=== PATIENT | male | born 1970 | race Hispanic/Latino ===

== ENCOUNTER 2017-12-09 22:10 | Inpatient (IN) | payer OTHER, BC ==
[2017-12-09] MEDS ORDERED: Nitroglycerin 2% Ointment Foilpak UD TOP STA (23:03)
[2017-12-09 23:07] LABS: BASO # 0.1 K/uL (0.0-0.2); BASO % 0.8 % (0.0-2.0); EOS # 0.3 K/uL (0.0-0.7); EOS % 3.9 % (0.0-4.0); HEMOGLOBIN 13.8 g/dL (12.0-18.0); LYMPH # 3.1 K/uL (1.0-4.3); LYMPH % 48.1 % (20.0-40.0); MEAN CELL VOLUME 84.1 fl (80.0-94.0); MEAN CORPUSCULAR HEMOGLOBIN 29.1 pg (27.0-31.0); MEAN CORPUSCULAR HGB CONC 34.6 g/dL (33.0-37.0); MEAN PLATELET VOLUME 7.6 fl (7.2-11.7); MONO # 0.6 K/uL (0.0-0.8); NEUT # 2.5 K/uL (1.8-7.0); NEUT % 38.2 % (50.0-75.0); NRBC % 0.2 % (0.0-0.0); RBC 4.75 Mil/uL (4.40-5.90); RED CELL DISTRIBUTION WIDTH 14.2 % (11.5-14.5); WHITE BLOOD COUNT 6.5 K/uL (4.8-10.8)
[2017-12-09] MEDS ORDERED: Nitroglycerin 2% Ointment Foilpak UD TOP ONE (23:24)
[2017-12-09 23:25] LABS: PROTHROMBIN TIME 10.7 Seconds (9.8-13.1)
[2017-12-09 23:26] LABS: PARTIAL THROMBOPLASTIN TIME 28.6 Seconds (25.6-37.1)
[2017-12-09 23:30] LABS: ALB/GLOB RATIO 1.1 (1.0-2.1); ALBUMIN 4.1 g/dL (3.5-5.0); ALT/SGPT 51 U/L (21-72); AST/SGOT 46 U/L (17-59); BLOOD UREA NITROGEN 17 mg/dl (9-20); CALCIUM 9.1 mg/dL (8.4-10.2); GFR AFRICAN-AMERICAN > 60; GFR NON-AFRICAN AMERICAN > 60
--- NOTE | 2017-12-09 23:42 | ED PDOC ---
HPI: Chest Pain Time Seen by Provider: 12/09/17 22:25 Chief Complaint (Nursing): Chest Pain Chief Complaint (Provider): Chest Pain History Per: Patient History/Exam Limitations: no limitations Onset/Duration Of Symptoms: Hrs (x5) Current Symptoms Are (Timing): Still Present Quality: Dull, Pressure Associated Symptoms: denies: Nausea, Dyspnea Additional Complaint(s): Chaz Oconnell is a 47 year old male with a past medical history of hypertension and hyperlipidemia, who is presenting to the ER with complaints of left sided chest pain associated with paresthesia to the left side of the face, onset around 5 pm today. Patient describes the pain as a constant dull pressure and notes paresthesia down the left arm within the last hour. He states that the location of the pain was similar to an episode last year when he was admitted to the hospital for a cardiac workup, which was negative. Patient states he was discharged and had a stress test done with cardiac cath technologist, Dr. Smith , which also had negative results. He reports that he has not had any follow- ups s/p receiving the results of the stress test. Today, he denies any nausea, shortness of breath, or vomiting. Patient offers no other medical complaints at this time. PMD: Pito Morris - Risk Factors TAD Risk Factors: Pos: Hypertension Past Medical History Reviewed: Historical Data, Nursing Documentation, Vital Signs Vital Signs: Last Vital Signs Temp 97.7 F 12/10/17 12:34 Pulse 71 12/10/17 12:34 Resp 16 12/10/17 12:34 BP 133/83 12/10/17 12:34 Pulse Ox 97 12/10/17 12:34 - Medical History PMH: Hiatal Hernia, HTN, Hypercholesterolemia Denies: Chronic Kidney Disease - Surgical History Surgical History: No Surg Hx - Family History Family History: States: Unknown Family Hx, Hypertension (Mother) Denies: Stroke, [place], CAD - Social History Current smoker - smoking cessation education provided: Yes (occasional) Alcohol: Occasional Drugs: Denies - Home Medications Home Medications: Ambulatory Orders Medication Instructions Recorded No Known Home Med 11/10/16 - Allergies Allergies/Adverse Reactions: Allergies Allergy/AdvReac Type Severity Reaction Status Date / Time No Known Allergies Allergy Verified 11/10/16 13:30 Review of Systems ROS Statement: Except As Marked, All Systems Reviewed And Found Negative Cardiovascular: Positive for: Chest Pain Respiratory: Negative for: Shortness of Breath Gastrointestinal: Negative for: Nausea, Vomiting Physical Exam - Reviewed Nursing Documentation Reviewed: Yes Vital Signs Reviewed: Yes - Physical Exam Appears: Positive for: Non-toxic, No Acute Distress Head Exam: Positive for: ATRAUMATIC, NORMOCEPHALIC Skin: Positive for: Warm, Dry Eye Exam: Positive for: EOMI, PERRL ENT: Negative for: Pharyngeal Erythema, Tonsillar Exudate Neck: Positive for: Painless ROM, Supple Cardiovascular/Chest: Positive for: Regular Rate, Rhythm. Negative for: Murmur Respiratory: Positive for: Normal Breath Sounds. Negative for: Wheezing Gastrointestinal/Abdominal: Positive for: Soft. Negative for: Tenderness Back: Positive for: Normal Inspection. Negative for: Decreased ROM Extremity: Positive for: Normal ROM. Negative for: Pedal Edema, Calf Tenderness , Deformity Lymphatic: Negative for: Adenopathy Neurologic/Psych: Positive for: Alert, log feeder II-XII (intact), Oriented (x3). Negative for: Motor/Sensory Deficits - Laboratory Results Result Diagrams: 12/09/17 22:55 12/09/17 22:55 - ECG ECG Rhythm: Positive for: Normal QRS, Normal ST Segment, Sinus Rhythm (normal) Rate: 71 O2 Sat by Pulse Oximetry: 98 (RA) Pulse Ox Interpretation: Normal Medical Decision Making Medical Decision Making: Time: 22:55 Impression: chest pain with cardiac risk factors Differentials: acute coronary syndrome, costochondritis, angina, pulmonary embolism Initial Plan: --EKG --CMP --Drug Screen --Hemoglobin A1C --Troponin --ED Urine Dipstick --CBC --D Dimer --COAG --CXR --Glucose, POC --Aspirin 162 mg PO --Nitroglycerin 2% 0.5 ea TOP Patient will be hospitalized for serial cardiac enzymes, pending ER workup. Scribe Attestation: Documented by Mari González, acting as a scribe for Viry Mortensen MD. Provider Scribe Attestation: All medical record entries made by the Scribe were at my direction and personally dictated by me. I have reviewed the chart and agree that the record accurately reflects my personal performance of the history, physical exam, medical decision making, and the department course for this patient. I have also personally directed, reviewed, and agree with the discharge instructions and disposition. Disposition - Clinical Impression Clinical Impression: Chest pain Discussed With Dr.: Javier Shahid Counseled Patient/Family Regarding: Studies Performed, Diagnosis - Disposition Disposition: Transfer of Care Disposition Time: 00:15 Condition: FAIR Patient Signed Over To: Andres Timmons Handoff Comments: Pending ER workup and final ER disposition
[2017-12-09 23:44] LABS: BARBITURATES, UR NEGATIVE (NEGATIVE); BENZODIAZEPINES, UR NEGATIVE (NEGATIVE); OPIATES, UR NEGATIVE (NEGATIVE); PHENCYCLIDINE, UR NEGATIVE (NEGATIVE)
--- NOTE | 2017-12-10 00:25 | ED PDOC ---
- Laboratory Results Result Diagrams: 12/09/17 22:55 12/09/17 22:55 - ECG O2 Sat by Pulse Oximetry: 97 (RA) Pulse Ox Interpretation: Normal Medical Decision Making Medical Decision Makin:00 Patient was signed out to me by Dr. Mortensen pending D-Dimer and reevaluation. 00:48 D-Dimer results were normal. Patient will be placed on chest pain observation as discussed by Dr. Mortensen with Dr. Shahid. Scribe Attestation: Documented by Mari Claudio, acting as a scribe for Andres Timmons MD. Provider Scribe Attestation: All medical record entries made by the Scribe were at my direction and personally dictated by me. I have reviewed the chart and agree that the record accurately reflects my personal performance of the history, physical exam, medical decision making, and the department course for this patient. I have also personally directed, reviewed, and agree with the discharge instructions and disposition. Disposition - Clinical Impression Clinical Impression: Chest pain - POA Present On Arrival: None - Disposition Disposition: Hospitalized as Observation Patient Disposition Time: 00:48 Condition: FAIR
--- NOTE | 2017-12-10 08:18 | RAD ---
HISTORY: chest pain COMPARISON: No comparison made with prior study 11/10/2016 TECHNIQUE: Two-view chest. FINDINGS: LUNGS: No active pulmonary disease. PLEURA: The interstitial markings are increased and coarsened with a few scattered peribronchial cuffing changes. Rule out sequela of reactive/inflammatory airway disease or viral illness. No significant pleural effusion identified. No pneumothorax apparent. CARDIOVASCULAR: Normal. OSSEOUS STRUCTURES: Minor multilevel degenerative spondylosis of the thoracic spine. VISUALIZED UPPER ABDOMEN: Normal. OTHER FINDINGS: None. IMPRESSION: The interstitial markings are increased and coarsened with a few scattered peribronchial cuffing changes. Rule out sequela of reactive/inflammatory airway disease or viral illness.
--- NOTE | 2017-12-10 11:32 | PCM.RRT ---
<Wilfred Chávez - Last Filed: 12/10/17 11:54> I.Reason for BOW MAKING MACHINE OPERATOR - A) Acute Change in Patient: Subjective: BOW MAKING MACHINE OPERATOR Start Time: 11:20am BOW MAKING MACHINE OPERATOR Reason: Focal weakness S: BOW MAKING MACHINE OPERATOR called by RN because pt was complaining of left side numbness involving face and arm associated with mild headache. Pt denies weakness, chest pain, sob , blurry vision. O: VSS, 02 Sat= 99 on rm air General: pt seen sitting up in bed, no acute distress, alert and oriented x3 HEENT: No facial droop noted, sensorium and motor in tact, EOM in tact, PEERLA Cardiac: RRR, no murmurs, rubs, gallops Pulm:CTABL, no wheezing, no rales, good breath sounds BL Neurological: No pronator drift of upper and lower extremities, Power 5/5 in all major muscle groups, sensorium in tact, no speech or confusion BOW MAKING MACHINE OPERATOR Interventions: EKG Head CT w/o contrast TSH Lipid PAnel Assessment: 47 y/o male with hx of HTN, HLD and questionable TIA with acute left sided numbness. No focal deficits noted. Labs reviewed. Plan: F/U EKG, Head CT, and labs BOW MAKING MACHINE OPERATOR MD: Brandi Rosen, Dr. Zarco, and administrative underwriter BOW MAKING MACHINE OPERATOR End Time: 11:30am <Brandi Rodriguez - Last Filed: 12/13/17 14:38> Attending/Attestation - Attestation I have personally seen and examined this patient.: Yes I have fully participated in the care of the patient.: Yes I have reviewed all pertinent clinical information, including history, physical exam and plan: Yes Notes (Text): 12/13/17 14:38 seen examined and discussed with resident dr. haque, agree with findings and plan as above.
[2017-12-10] MEDS ORDERED: Sodium Chloride 0.9% 100 ML ONE (11:39)
[2017-12-10] MEDS ORDERED: Iodixanol 320 MG/ML 100 ML BOTTLE IV ONE (11:39)
--- NOTE | 2017-12-10 12:10 | CP.PCM.PN ---
Subjective - Date & Time of Evaluation Date of Evaluation: 12/10/17 Time of Evaluation: 10:30 - Subjective Subjective: I WAS ASKED TO SEE THIS PATIENT FOR CHEST PAIN. HE HAS A HISTORY OF HYPERLIPIDEMIA AND HE IS A SMOKER. HE ALSO HAS A HISTORY IN MEDICAL NOTES OF HAVING HYPERTENSION BUT HE DENIES IT STATING THAT HE ONLY HAD ELEVATED BLOOD PRESSURES UNDER TIMES OF STRESS. HE HAD ATPICAL SHARP, KNIFE-LIKE STABBING CHEST PAIN WITH LEFT ARM TINGLING AND NUMBNESS WELL LEFT FACIAL NUMBNESS AT TIMES ON AN ADMISSION IN OCTOBER OF 2016 AND THE ENZYMES WERE NORMAL. HE HAD AN OUT PATIENT STRESS TEST BY DR TAN IN [facility] AND STATES THAT IT WAS NORMAL. IT IS OF NOTE THAT HE WAS SEEN BY NEUROLOGY AND AN MRI SHOWED POSSIBLE OLD LACUNAR INFARCTS BUT THE DIFFERENTIAL DIAGNOSIS ALSO INCLUDE TRAUMA, INFECTION/INFLAMMATION OR DEMYELATING DISEASE. HE NOW PRESENTED TO THE ER YESTERDAY WITH TWO HOURS OF ON AND OFF CHEST PAIN THAT IS AGAIN ATYPICAL SHARP CHEST AND LEFT ARM AND LEFT FACIAL TINGLING AND NUMBNESS. HE IS CHEST PAIN FREE THIS AM BUT STILL HAS OCCASIONAL LEFT ARM AND LEFT FACIAL NUMBNESS AND TINGLING. HE DENIES SOB, PALPITATIONS OR SYNCOPE. HE ALSO STATES THAT BOTH LAST YEAR AND NOW HE HAD VERY STRESSFUL PERSONAL OR JOB RELATED ISSUES. Objective - Vital Signs/Intake and Output Vital Signs (last 24 hours): Temp Pulse Resp BP Pulse Ox 97.1 F L 64 18 117/68 97 12/10/17 08:35 12/10/17 08:35 12/10/17 08:35 12/10/17 08:35 12/10/17 08:35 - Medications Medications: Current Medications Aspirin (Ecotrin) 81 mg PO DAILY ANGELA Last Admin: 12/10/17 09:34 Dose: 81 mg Atorvastatin Calcium (Lipitor) 5 mg PO ONCE ONE Stop: 12/10/17 08:41 - Labs Labs: 12/09/17 22:55 12/09/17 22:55 PT 10.7 Seconds (9.8-13.1) 12/09/17 22:55 INR 1.0 (0.9-1.2) 12/09/17 22:55 APTT 28.6 Seconds (25.6-37.1) 12/09/17 22:55 - Respiratory Exam Respiratory Exam: Clear to Ausculation Bilateral - Cardiovascular Exam Cardiovascular Exam: REGULAR RHYTHM, +S1, +S2 - Extremities Exam Extremities Exam: Normal Inspection - Additional Findings Additional findings: EKG NSR, LVE, NO ACUTE CHANGES TROPONIN NORMAL X 2 TOTAL CHOLESTEROL 160 Assessment and Plan - Assessment and Plan (Free Text) Assessment: ATYPICAL CHEST PAIN WITH NORMAL TROPONINS AND NO ACUTE CHANGES ON THE EKG LEFT ARM AND FACIAL NUMBNESS AND TINGLING ABNORMAL MRI OCTOBER 2016 HYPERLIPIDEMIA Plan: THE PATIENT WAS GIVEN ASPIRIN AND NITROPASTE IN THE ER CONTINUE ASPIRIN AND ATORVASTATIN, O2 VIA NASAL CANNULA ORDERED ECHOCARDIOGRAM RECOMMEND REPEAT MRI AND NEUROLOGY CONSULT-THE NURSE WAS SPOKEN TO AN A CALL WAS PUT OUT TO DR BOURGEOIS A STRESS TEST SHOULD BE CONSIDERED BUT ONLY AFTER A NEUROLOGICAL EVALUATION
--- NOTE | 2017-12-10 12:43 | CARD ---
APPROVED REPORT EKG Measurement Heart [id number] <Conclusion> Normal sinus rhythm with sinus arrhythmia Moderate voltage criteria for LVH, may be normal variant Borderline ECG
--- NOTE | 2017-12-10 13:31 | CT ---
PROCEDURE: CT angiography of the neck and brain dated 12/10/2017 HISTORY: Left-sided weakness COMPARISON: Comparison made with MRI brain 11/11/2016 TECHNIQUE: Contiguous helical/transaxial images of the neck were obtained from the level of the skull-base to the superior mediastinum in the arteriographic phase of enhancement. Coronal and sagittal reformats or also generated. IV contrast dose: 99 cc Visipaque 320 contrast material Radiation Dose - DLP: 771.37 mGy-cm This CT exam was performed using one or more of the following dose reduction techniques: Automated exposure control, adjustment of the mA and/or kV according to patient size, and/or use of iterative reconstruction technique. FINDINGS: The aortic arch and origins of the great vessels are widely patent. No significant atherosclerotic disease. Three-vessel arch. The common carotid arteries, carotid bifurcations and internal carotid arteries including the petrous, cavernous and supraclinoid segments widely patent as well with no significant stenosis. The vertebral arteries are widely patent right-side of which is larger in caliber/ more dominant than the left. . The basilar artery is patent. The visualized major branches of the [place] are also patent. The distal on branches of the anterior middle and posterior cerebral arteries are relatively symmetric. No evidence of occlusion or significant stenosis of. No evidence of large aneurysm nor vascular malformation. Note is made of what appears represent chronic atelectatic and or scarring changes in the right anterior upper lung field. There is minor mucosal thickening within the sphenoid sinus and several ethmoid air cells with the some extension superiorly into the inferior margin of the frontal sinus on the right. Nine kelsie multiple small nonspecific bilateral cervical lymph nodes are present. Mild multilevel degenerative spondylosis of the cervical spine. IMPRESSION: There is no evidence of occlusion or significant stenosis involving the anterior or posterior circulation as described. No evidence of occlusion of the major cerebral vessels. The large aneurysm nor vascular malformation
--- NOTE | 2017-12-10 18:10 | CP.PCM.CON ---
History of Present Illness - History of Present Illness History of Present Illness: Mr. Oconnell is a 47-year-old man with a past medical history of HTN, HLD, who presented yesterday for chest pain and left side numbness. The numbness improved yesterday and he is being worked-up for chest pain. This morning at around 11:20 AM, he complained of left face, arm and leg numbness and an STRIPPING SHOVEL OILER was called. A CTA of the head/neck was done and there was no significant stenosis or large vessel occlusion. His symptoms of numbness were not associated with weakness and now seem to be improved. Review of Systems - Review of Systems All systems: reviewed and no additional remarkable complaints except Past Patient History - Infectious Disease Hx of Infectious Diseases: None - Past Medical History & Family History Past Medical History?: Yes - Past Social History Alcohol: Occasional Drugs: Denies - CARDIAC Hx Hypercholesterolemia: Yes Hx Hypertension: Yes - PULMONARY Hx Respiratory Disorders: No - NEUROLOGICAL Hx Neurological Disorder: No - HEENT Hx HEENT Problems: No - RENAL Hx Chronic Kidney Disease: No - ENDOCRINE/METABOLIC Hx Endocrine Disorders: No - HEMATOLOGICAL/ONCOLOGICAL Hx Blood Disorders: No - INTEGUMENTARY Hx Dermatological Problems: No - MUSCULOSKELETAL/RHEUMATOLOGICAL Hx Falls: No - GASTROINTESTINAL Hx Gastrointestinal Disorders: No - GENITOURINARY/GYNECOLOGICAL Hx Genitourinary Disorders: No - PSYCHIATRIC Hx Substance Use: No - SURGICAL HISTORY Hx Surgeries: No - ANESTHESIA Hx Anesthesia: No Meds Allergies/Adverse Reactions: Allergies Allergy/AdvReac Type Severity Reaction Status Date / Time No Known Allergies Allergy Verified 11/10/16 13:30 - Medications Medications: Current Medications Aspirin (Ecotrin) 81 mg PO DAILY ANGELA Last Admin: 12/10/17 09:34 Dose: 81 mg Atorvastatin Calcium (Lipitor) 5 mg PO ONCE ONE Stop: 12/10/17 08:41 Physical Exam - Neurological Exam Neurological exam: Alert, CN II-XII Intact, Normal Gait, Oriented x3, Reflexes Normal Additional comments: NIHSS= 0 Results - Vital Signs Recent Vital Signs: Last Vital Signs Temp 97.6 F 12/10/17 17:13 Pulse 67 12/10/17 17:13 Resp 18 12/10/17 17:13 BP 129/78 12/10/17 17:13 Pulse Ox 98 12/10/17 17:13 - Labs Result Diagrams: 12/09/17 22:55 12/09/17 22:55 Labs: Laboratory Results - last 24 hr 12/09/17 12/09/17 12/09/17 22:55 22:55 22:55 WBC 6.5 RBC 4.75 Hgb 13.8 Hct 39.9 MCV 84.1 D MCH 29.1 MCHC 34.6 RDW 14.2 Plt Count 245 MPV 7.6 Neut % (Auto) 38.2 L Lymph % (Auto) 48.1 H Rush % (Auto) 9.0 Eos % (Auto) 3.9 Baso % (Auto) 0.8 Neut # (Auto) 2.5 Lymph # (Auto) 3.1 Rush # (Auto) 0.6 Eos # (Auto) 0.3 Baso # (Auto) 0.1 PT 10.7 INR 1.0 APTT 28.6 D-Dimer, Quantitative 209 Sodium 143 Potassium 4.2 Chloride 101 Carbon Dioxide 31 H Anion Gap 15 BUN 17 Creatinine 1.2 Est GFR ( Amer) > 60 Est GFR (Non-Af Amer) > 60 POC Glucose (mg/dL) Random Glucose 140 H Hemoglobin A1c Calcium 9.1 Total Bilirubin 0.7 AST 46 ALT 51 Alkaline Phosphatase 71 Troponin I < 0.0120 NT-Pro-B Natriuret Pep Total Protein 7.8 Albumin 4.1 Globulin 3.7 Albumin/Globulin Ratio 1.1 Triglycerides Cholesterol LDL Cholesterol Direct HDL Cholesterol TSH 3rd Generation Urine Opiates Screen Urine Methadone Screen Ur Barbiturates Screen Ur Phencyclidine Scrn Ur Amphetamines Screen U Benzodiazepines Scrn U Oth Cocaine Metabols U Cannabinoids Screen 12/09/17 12/09/17 12/09/17 22:55 22:55 23:08 WBC RBC Hgb Hct MCV MCH MCHC RDW Plt Count MPV Neut % (Auto) Lymph % (Auto) Rush % (Auto) Eos % (Auto) Baso % (Auto) Neut # (Auto) Lymph # (Auto) Rush # (Auto) Eos # (Auto) Baso # (Auto) PT INR APTT D-Dimer, Quantitative Sodium Potassium Chloride Carbon Dioxide Anion Gap BUN Creatinine Est GFR ( Amer) Est GFR (Non-Af Amer) POC Glucose (mg/dL) 123 H Random Glucose Hemoglobin A1c 6.2 Calcium Total Bilirubin AST ALT Alkaline Phosphatase Troponin I NT-Pro-B Natriuret Pep Total Protein Albumin Globulin Albumin/Globulin Ratio Triglycerides Cholesterol LDL Cholesterol Direct HDL Cholesterol TSH 3rd Generation Urine Opiates Screen Negative Urine Methadone Screen Negative Ur Barbiturates Screen Negative Ur Phencyclidine Scrn Negative Ur Amphetamines Screen Negative U Benzodiazepines Scrn Negative U Oth Cocaine Metabols Negative U Cannabinoids Screen Negative 12/09/17 12/10/17 12/10/17 23:57 08:05 11:30 WBC RBC Hgb Hct MCV MCH MCHC RDW Plt Count MPV Neut % (Auto) Lymph % (Auto) Rush % (Auto) Eos % (Auto) Baso % (Auto) Neut # (Auto) Lymph # (Auto) Rush # (Auto) Eos # (Auto) Baso # (Auto) PT INR APTT D-Dimer, Quantitative Sodium Potassium Chloride Carbon Dioxide Anion Gap BUN Creatinine Est GFR ( Amer) Est GFR (Non-Af Amer) POC Glucose (mg/dL) Random Glucose Hemoglobin A1c Calcium Total Bilirubin AST ALT Alkaline Phosphatase Troponin I < 0.0120 NT-Pro-B Natriuret Pep 17.1 Total Protein Albumin Globulin Albumin/Globulin Ratio Triglycerides 199 H D Cholesterol 160 LDL Cholesterol Direct 45 HDL Cholesterol 35 TSH 3rd Generation 1.38 Urine Opiates Screen Urine Methadone Screen Ur Barbiturates Screen Ur Phencyclidine Scrn Ur Amphetamines Screen U Benzodiazepines Scrn U Oth Cocaine Metabols U Cannabinoids Screen 12/10/17 16:30 WBC RBC Hgb Hct MCV MCH MCHC RDW Plt Count MPV Neut % (Auto) Lymph % (Auto) Rush % (Auto) Eos % (Auto) Baso % (Auto) Neut # (Auto) Lymph # (Auto) Rush # (Auto) Eos # (Auto) Baso # (Auto) PT INR APTT D-Dimer, Quantitative Sodium Potassium Chloride Carbon Dioxide Anion Gap BUN Creatinine Est GFR ( Amer) Est GFR (Non-Af Amer) POC Glucose (mg/dL) Random Glucose Hemoglobin A1c Calcium Total Bilirubin AST ALT Alkaline Phosphatase Troponin I < 0.0120 NT-Pro-B Natriuret Pep Total Protein Albumin Globulin Albumin/Globulin Ratio Triglycerides Cholesterol LDL Cholesterol Direct HDL Cholesterol TSH 3rd Generation Urine Opiates Screen Urine Methadone Screen Ur Barbiturates Screen Ur Phencyclidine Scrn Ur Amphetamines Screen U Benzodiazepines Scrn U Oth Cocaine Metabols U Cannabinoids Screen Assessment & Plan (1) Left sided numbness Assessment and Plan: The patient has a history of HTN and HLD, which are risk factors for stroke. His symptoms are consistent with a possible TIA. I recommend the followin. Telemetry 2. MRI/MRA brain without contrast and MRA neck without contrast 3. Echocardiogram with bubble study 4. Aspirin 81 mg daily 5. Lipitor 40 mg daily 6. Lipid panel, HbA1c, B12, folate, TSH, ESR, CRP, vitamin D levels 7. PT/OT eval 8. Permissive HTN for 24 hours (treat BP higher than 220/110 mm Hg) 9. Q 4 hour neuro-checks 10. Case management consult Thank you. Status: Acute Priority: High
--- NOTE | 2017-12-10 22:48 | HP ---
HISTORY OF PRESENT ILLNESS: This is a 47-year-old male with history of hypertension and hyperlipidemia. He is not compliant to medications. The patient presented to emergency room with atypical stabbing pain on the left side of the chest associated with left arm tingling and numbness as well as left facial numbness. The patient denied to have any shortness of breath or palpitation or any other cardiovascular symptoms associated with it. The patient had similar admission in 10/2016, and at that time, myocardial infarction was ruled out and he had an outpatient stress test by Dr. Smith in [place] afterwards and he stated that it was normal. MRI was done also before and it showed old lacunar infarct. The patient was evaluated in the emergency room and he was admitted to telemetry floor to rule out RI as well as any transient ischemic attack. REVIEW OF SYSTEMS: Other review of systems is negative. ALLERGIES: NO KNOWN ALLERGY. MEDICATIONS: The patient is currently not taking any medicine. PAST MEDICAL HISTORY: As above. SOCIAL HISTORY: Positive for smoking. Denied EtOH or substance abuse. FAMILY HISTORY: Noncontributory. PHYSICAL EXAMINATION: VITAL SIGNS: Blood pressure 144/95, temperature 98.5, respiratory rate 18, and pulse 77. HEENT: Pupils equal and reactive to light. Normal-appearing mucosa of the conjunctivae, oropharynx, and nasal membrane mucosa. NECK: Supple. No carotid bruit. No lymph node. No thyromegaly. CHEST AND LUNGS: Bilateral symmetrical expansion. She has good air exchange. No rales. No rhonchi. CARDIOVASCULAR: PMI not localized. S1 and S2. No additional sounds. ABDOMEN: Normoactive bowel sounds. No tenderness. No organomegaly. No masses. EXTREMITIES: No cyanosis. No clubbing. No edema. CENTRAL NERVOUS SYSTEM: Alert, awake, and oriented x2. No neurological deficit could be appreciated. ASSESSMENT: Chest pain, rule out myocardial infarction; left-sided facial and upper extremity numbness, rule out transient ischemic attack; history of hypertension; and history of hyperlipidemia. PLAN: We will give aspirin and atorvastatin. Neurology and Cardiology consult. Echocardiogram, neuro check every 4 hours, and follow recommendations of consultants. Javier Shahid MD [facility] # [id number]
--- NOTE | 2017-12-11 09:25 | CP.PCM.PN ---
Subjective - Date & Time of Evaluation Date of Evaluation: 12/11/17 Time of Evaluation: 09:00 - Subjective Subjective: NO CHEST PAIN OR SOB FEELS OK THIS AM Objective - Vital Signs/Intake and Output Vital Signs (last 24 hours): Temp Pulse Resp BP Pulse Ox 97.6 F 62 18 135/86 98 12/11/17 08:07 12/11/17 08:07 12/11/17 08:07 12/11/17 08:07 12/11/17 08:07 - Medications Medications: Current Medications Aspirin (Ecotrin) 81 mg PO DAILY [facility] Last Admin: 12/10/17 09:34 Dose: 81 mg Atorvastatin Calcium (Lipitor) 10 mg PO DAILY [facility] - Labs Labs: 12/09/17 22:55 12/09/17 22:55 PT 10.7 Seconds (9.8-13.1) 12/09/17 22:55 INR 1.0 (0.9-1.2) 12/09/17 22:55 APTT 28.6 Seconds (25.6-37.1) 12/09/17 22:55 - Respiratory Exam Respiratory Exam: Clear to Ausculation Bilateral - Cardiovascular Exam Cardiovascular Exam: REGULAR RHYTHM, +S1, +S2 - Extremities Exam Extremities Exam: Normal Inspection - Additional Findings Additional findings: NEUROLOGY CONSULTATION REVIEWED HEAD/NECK CTA IS NORMAL Assessment and Plan - Assessment and Plan (Free Text) Assessment: ATYPICAL CHEST PAIN LEFT ARM AND LEFT FACE TINGLING AND NUMBNESS HYPERLIPIDEMIA MILD HYPERTENSION ON RECENT READINGS Plan: CONTINUE ASPIRIN AND ATORVASTATIN FOR ECHOCARDIOGRAM FOR MRI/MRA
--- NOTE | 2017-12-11 09:58 | CP.PCM.PN ---
Subjective - Date & Time of Evaluation Date of Evaluation: 12/11/17 Time of Evaluation: 09:56 - Subjective Subjective: Mr. crawford was seen and examined at the bedside. He is alert, oriented in all spheres. He denies any headache, dizziness, lightheadedness, numbness in his face or arms, nausea, or vomiting. He is able to follow simple commands.There was no untoward events overnight. Objective - Vital Signs/Intake and Output Vital Signs (last 24 hours): Temp Pulse Resp BP Pulse Ox 97.6 F 62 18 135/86 98 12/11/17 08:07 12/11/17 08:07 12/11/17 08:07 12/11/17 08:07 12/11/17 08:07 - Medications Medications: Current Medications Aspirin (Ecotrin) 81 mg PO DAILY [facility] Last Admin: 12/11/17 09:45 Dose: 81 mg Atorvastatin Calcium (Lipitor) 10 mg PO DAILY [facility] Last Admin: 12/11/17 09:45 Dose: 10 mg - Labs Labs: 12/09/17 22:55 12/09/17 22:55 PT 10.7 Seconds (9.8-13.1) 12/09/17 22:55 INR 1.0 (0.9-1.2) 12/09/17 22:55 APTT 28.6 Seconds (25.6-37.1) 12/09/17 22:55 - Constitutional Appears: No Acute Distress - Head Exam Head Exam: NORMAL INSPECTION - Eye Exam Pupil Exam: PERRL - Neurological Exam Neurological Exam: Alert, Awake, Oriented x3 Neuro motor strength exam: Left Upper Extremity: 5, Right Upper Extremity: 5, Left Lower Extremity: 5, Right Lower Extremity: 5 Additional comments: He is alert, oriented, follows commands, and sensation is intact and equal. Assessment and Plan (1) Left sided numbness Assessment & Plan: Case discussed with Dr. Sanchez, continue all current medical ( aspirin and lipitor), physical, and occupational therapies. Pending MRI/MRA brain without contrast and MRA neck without contrast, Echocardiogram with bubble study, Permissive HTN for 24 hours until 18:00 (treat BP higher than 220/110 mm Hg). Status: Acute
--- NOTE | 2017-12-11 17:55 | MRI ---
PROCEDURE: MRI BRAIN WITHOUT CONTRAST HISTORY: Left side numbness COMPARISON: Comparison made with the prior CT scan and CTA of the brain dated 11/10/2016 and 12/10/2017. Comparison also made with prior MRI of the brain dated 11/11/2016. TECHNIQUE: Multiplanar, multisequence MR images of the brain were obtained without intravenous contrast enhancement. FINDINGS: HEMORRHAGE: No acute parenchymal, subarachnoid or extra-axial hemorrhage. No evidence of hemosiderin deposition seen on gradient echo weighted sequence. DWI: No evidence of an acute or early subacute infarction seen on diffusion imaging. . BRAIN PARENCHYMA: Re- demonstrated are multiple tiny nonspecific focal areas of increased T2 signal scattered about the subcortical and to a lesser degree deep white matter both cerebral hemispheres. Rule out the sequela of small vessel disease. Differential diagnosis would include sequela of old trauma, migraine headaches or post infectious/inflammatory etiologies. Atypical presentation of a demyelinating disease process would be unlikely in the absence of a pertinent clinical history however not completely excluded. VENTRICLES: Unremarkable. No hydrocephalus. CRANIUM: Calvarium appears grossly intact. Orbits ORBITS: Orbits and contents unremarkable. PARANASAL SINUSES/MASTOIDS: There is mild to moderate mucosal thickening seen within multiple ethmoid air cells and right chamber sphenoid sinus. VASCULAR SYSTEM: Visualized major vascular flow voids at skull base patent. OTHER FINDINGS: None. IMPRESSION: No evidence of acute intracranial hemorrhage or acute infarct. Re- demonstrated are multiple tiny focal areas of increased T2 signal scattered about the subcortical and to a lesser degree deep white matter both cerebral hemispheres nonspecific. Rule out chronic sequela of small vessel disease. See above discussion for additional diagnostic considerations. Mild mucoperiosteal inflammatory changes seen within multiple right-sided ethmoid air cells and right chamber sphenoid sinus.
--- NOTE | 2017-12-11 18:27 | MRI ---
PROCEDURE: MRA of the neck dated the 12/11/2017. HISTORY: Left side weakness COMPARISON: None available. TECHNIQUE: 3D [id number] angiography of the neck was performed. Rotating maximum intensity projection images of the cervical carotid and vertebral arteries were generated. The origins of the common carotid arteries were not visualized, which is a limitation inherent to the non-contrast time of flight technique. FINDINGS: RIGHT CAROTID ARTERIES: Common Carotid Artery: Normal. Carotid Bifurcation: Normal. Internal Carotid Artery:Normal. External Carotid Artery (proximal branches): Normal. LEFT CAROTID ARTERIES: Common Carotid Artery: Normal. Carotid Bifurcation: Normal. Internal Carotid Artery:Normal. External Carotid Artery (proximal branches): Normal. VERTEBRAL ARTERIES: Right Vertebral Artery: Normal. Left Vertebral Artery: Normal. OTHER FINDINGS: None. IMPRESSION: Normal MR Angiography of the neck.
--- NOTE | 2017-12-11 18:45 | MRI ---
PROCEDURE: Magnetic Resonance Angiography Brain HISTORY: left side numbness COMPARISON: Correlation made with concurrent MRA of the neck, MRI of the brain and prior CTA brain 12/10/2017 TECHNIQUE: 3D time of flight MR angiography of the intracranial arteries was performed. Rotating maximum intensity projection images were generated. Note the examination is limited by motion artifact. The in FINDINGS: INTERNAL CAROTID ARTERIES: Unremarkable. The skull base, petrous, cavernous and supraclinoid segments are bilaterally widely patient. ANTERIOR CEREBRAL ARTERIES: Unremarkable. A1 and A2 segments are widely patent. Smaller distal branches unremarkable, as visualized. MIDDLE CEREBRAL ARTERIES: Unremarkable. M1 and M2 segments are widely patent. Perisylvian branches grossly symmetric. POSTERIOR CIRCULATION: Basilar Artery: Unremarkable. Due to Distal Vertebral Arteries: Unremarkable. Posterior Cerebral Arteries: Apparent origin right posterior cerebral artery with small caliber of P1 segment arising from the basilar tip of felt to be an anatomic variation. Posterior Inferior Cerebellar Arteries: Unremarkable. ANEURYSM/ VASCULAR MALFORMATIONS: No evidence of large aneurysm nor vascular malformation. OTHER FINDINGS: None. IMPRESSION: Limited motion degraded study. Unremarkable MR angiography of the brain.
--- NOTE | 2017-12-11 21:47 | CARD ---
APPROVED REPORT EXAM: Two-dimensional and M-mode echocardiogram with Doppler and color Doppler. Other Information Quality : GoodRhythm : NSR INDICATION Chest Pain 2D DIMENSIONS IVSd1.03 (0.7-1.1cm)LVDd5.37 (3.9-5.9cm) LVOT Diameter2.24 (1.8-2.4cm)PWd0.94 (0.7-1.1cm) IVSs1.82 (0.8-1.2cm)LVDs3.29 (2.5-4.0cm) FS (%) 38.7 %PWs1.54 (0.8-1.2cm) LVEF (%)55.0 (>50%) M-Mode DIMENSIONS Left Atrium (MM)4.53 (2.5-4.0cm)IVSd1.13 (0.7-1.1cm) Aortic Root3.01 (2.2-3.7cm)LVDd6.22 (4.0-5.6cm) Aortic Cusp Exc.1.65 (1.5-2.0cm)PWd1.06 (0.7-1.1cm) IVSs1.65 cmFS (%) 42 % LVDs3.61 (2.0-3.8cm)PWs1.46 cm Mitral Valve MV E Ddjrgnhm97.8cm/sMV DECEL [id number] A Whsmuyth74.8cm/s MV LMF48pkS/A ratio1.3MVA (PHT)3.77cm2 TDI Lateral E' Peak V12.22cm/sMedial E' Peak V12.06cm/sE/Lateral E'6.9 E/Medial E'6.9 Pulmonary Valve PV Peak Sagojvhq947.1cm/s LEFT VENTRICLE The left ventricle is normal size. There is normal left ventricular wall thickness. The left ventricular function is normal. The left ventricular ejection fraction is within the normal range. There is normal LV segmental wall motion. The left ventricular diastolic function is normal. RIGHT VENTRICLE The right ventricle is normal size. There is normal right ventricular wall thickness. The right ventricular systolic function is normal. ATRIA The left atrium is mildly dilated. The right atrium size is normal. AORTIC VALVE The aortic valve is not well visualized. No aortic regurgitation is present. There is no aortic valvular stenosis. MITRAL VALVE The mitral valve is mildly thickened. There is no mitral valve stenosis. There is no mitral valve regurgitation noted. TRICUSPID VALVE The tricuspid valve is normal in structure. There is no tricuspid valve regurgitation noted. PULMONIC VALVE The pulmonary valve is normal in structure. There is no pulmonic valvular regurgitation. GREAT VESSELS The aortic root is normal in size. The IVC is normal in size and collapses >50% with inspiration. PERICARDIAL EFFUSION There is a trace loculated anterior pericardial effusion. <Conclusion> Poor Echo window The left ventricle is normal size. There is normal left ventricular wall thickness. The left ventricular function is normal. The left ventricular ejection fraction is within the normal range. There is normal LV segmental wall motion. The left ventricular diastolic function is normal.
--- NOTE | 2017-12-11 23:05 | PN ---
DAILY PROGRESS NOTE DATE: 12/11/2017 SUBJECTIVE: The patient is seen today, 12/11/2017. He is not in any cardiopulmonary distress. OBJECTIVE: VITAL SIGNS: Blood pressure is 140/90, temperature 98.2, respiratory rate 20, and pulse 73. HEENT: Pupils equal and reactive to light. Normal appearing mucosa of the conjunctivae, oropharynx, and nasal membrane mucosa. NECK: Supple. No JVD. No carotid bruit. No lymph node. No thyromegaly. CHEST AND LUNGS: Bilateral symmetrical expansion. Good air exchange. No rales. No rhonchi. CARDIOVASCULAR: PMI not localized. S1 and S2. No additional sounds. ABDOMEN: Normoactive bowel sounds. No tenderness. No organomegaly. No masses. EXTREMITIES: No cyanosis. No clubbing. No edema. CENTRAL NERVOUS SYSTEM: Alert, awake, and oriented x3. No neurological deficits could be appreciated. BLOOD WORK: Done, ruled out myocardial infarction. ASSESSMENT: 1. Chest pain, myocardial infarction is ruled out. 2. Numbness on the left upper extremity, rule out transient ischemic attack. PLAN: Follow Neurology recommendations and once workup is completed and the patient is cleared by Neurology and Cardiology will be discharged home. Javier Shahid MD
[2017-12-12 05:31] VITALS: RESP 18
[2017-12-12 07:47] VITALS: BP 142/91; PULSE 68; TEMP 97.3; O2SAT 99
--- NOTE | 2017-12-12 09:10 | CP.PCM.PN ---
Subjective - Date & Time of Evaluation Date of Evaluation: 12/12/17 Time of Evaluation: 09:00 - Subjective Subjective: NO CHEST PAIN OR SOB NO ARM OR FACIAL NUMBNESS AT THE PRESENT TIME Objective - Vital Signs/Intake and Output Vital Signs (last 24 hours): Temp Pulse Resp BP Pulse Ox 97.3 F L 68 18 142/91 H 99 12/12/17 07:46 12/12/17 07:46 12/12/17 07:46 12/12/17 07:46 12/12/17 07:46 - Medications Medications: Current Medications Aspirin (Ecotrin) 81 mg PO DAILY [facility] Last Admin: 12/12/17 08:50 Dose: 81 mg Atorvastatin Calcium (Lipitor) 10 mg PO DAILY [facility] Last Admin: 12/12/17 08:50 Dose: 10 mg - Labs Labs: 12/09/17 22:55 12/09/17 22:55 PT 10.7 Seconds (9.8-13.1) 12/09/17 22:55 INR 1.0 (0.9-1.2) 12/09/17 22:55 APTT 28.6 Seconds (25.6-37.1) 12/09/17 22:55 - Respiratory Exam Respiratory Exam: Clear to Ausculation Bilateral - Cardiovascular Exam Cardiovascular Exam: REGULAR RHYTHM, +S1, +S2 - Extremities Exam Extremities Exam: Normal Inspection - Additional Findings Additional findings: COUNTER CHECKER NSR ECHO NORMAL MRA NEGATIVE MRI UNCHANGED FROM LAST YEAR Assessment and Plan - Assessment and Plan (Free Text) Assessment: ATYPICAL CHEST PAIN WITH NEGATIVE EKG AND TROPONINS OCCASIONAL LEFT FACIAL AND LEFT ARM NUMBNESS AND TINGLING Plan: CONTINUE ASPIRIN AND ATORVASTATIN STRESS TEST BUT ONLY AFTER NEUROLOGY CLEARANCE AND THIS CAN BE DONE OUT PATIENT
== END 2017-12-12 12:24 | disposition home or self-care (01) | DRG 313 ==
LOC: H.ER 22:10 → H.ERHOLD 12-10 00:46 → H.TEL 12-10 02:40 → OBSVTOIN 12-11 12:52
PROVIDERS: ADMIT Internal Medicine; ATTEND Internal Medicine
DX: R07.89 Other chest pain (principal); E78.00 Pure hypercholesterolemia, unspecified; E78.5 Hyperlipidemia, unspecified; F17.200 Nicotine dependence, unspecified, uncomplicated; I10 Essential (primary) hypertension; Z79.82 Long term (current) use of aspirin; Z79.899 Other long term (current) drug therapy; Z86.73 Personal history of transient ischemic attack (TIA), and cerebral infarction without residual deficits; K44.9 Diaphragmatic hernia without obstruction or gangrene

== ENCOUNTER 2019-02-08 19:47 | Emergency (ER) | payer OTHER, BC ==
[2019-02-08 19:50] VITALS: BMI 32.1
[2019-02-08 19:51] VITALS: RESP 16
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
[2019-02-08 21:42] VITALS: BP 138/89; PULSE 82; TEMP 98.5
[2019-02-09 01:03] VITALS: O2SAT 97
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
== END 2019-02-08 21:37 | disposition home or self-care (01) ==
LOC: H.ER 19:47
DX: S50.12XA Contusion of left forearm, initial encounter (principal); V03.10XA Pedestrian on foot injured in collision with car, pick-up truck or van in traffic accident, initial encounter; Y92.89 Other specified places as the place of occurrence of the external cause